=== PATIENT | male | born 2000 | race Caucasian/White ===

== ENCOUNTER 2022-05-30 19:12 | Emergency (ER) | payer OTHER ==
[~2022-05-30] VITALS: Ht 167.6 cm; Wt 78.5 kg
[2022-05-30 19:30] VITALS: BP 120/68
--- NOTE | 2022-05-30 19:33 | NUR ---
TO LOBBY A/W BED AMBULATORY
[2022-05-30 21:40] VITALS: BP 120/68
--- NOTE | 2022-05-30 21:40 | NUR ---
SEEN AND EXAMINED BY REYNA
--- NOTE | 2022-05-30 22:00 | NUR ---
results back and note by ERMD and for d/c
--- NOTE | 2022-05-30 22:02 | NUR ---
Patient discharged with v/s stable. Written and verbal after care instructions given and explained BY DR. ESTRADA. Patient verbalized understanding. Ambulatory with steady gait. All questions addressed prior to discharge. Advised to follow up with PMD.
== END 2022-05-30 22:03 | disposition home or self-care (01) ==
LOC: MED 19:12
DX: F41.9 Anxiety disorder, unspecified (principal); R07.9 Chest pain, unspecified
CPT/HCPCS: 71045; 93005; 99283